=== PATIENT | female | born 1945 | race Caucasian/White ===

== ENCOUNTER → 2023-10-15 11:29 | Outpatient (REF) | payer MEDICARE, OTHER, SELFPAY | LOC: RAD 11:29 | PROVIDERS: ATTENDING PHYSICIAN Internal Medicine Hematology & Oncology; FAMILY PHYSICIAN Family Medicine | DX: C40 Malignant neoplasm of bone and articular cartilage of limbs (principal); C34.92 Malignant neoplasm of unspecified part of left bronchus or lung | CPT/HCPCS: 71260; 74177; Q9967 ==

== ENCOUNTER → 2024-01-29 15:57 | Outpatient (REF) | payer MEDICARE, OTHER, SELFPAY ==
[2024-01-29 13:55] LABS: % Basophils 0.4 % (0-2); % Lymphocytes 27.9 % (20.5-51.1); % Monocytes 14.1 % (1.7-9.3); % Neutrophils 56.6 % (42.2-75.2); Absolute Eosinophils 0.1 10^3/uL (0-0.7); Absolute Lymphocytes 1.4 10^3/uL (1.2-3.4); Absolute Monocytes 0.7 10^3/uL (0.1-0.6); Absolute Neutrophils 2.8 10^3/uL (1.4-6.5); Hematocrit 40.3 % (37.0-47.0); Hemoglobin 13.6 g/dL (12.0-16.0); Mean Corp Hgb Conc. 33.7 g/dL (33.0-37.0); Mean Corpuscular Hgb 37.2 pg (27.0-31.0); Mean Corpuscular Volume 110.1 fL (81.0-99.0); Mean Platelet Volume 9.8 fL (7.4-10.4); Platelet Count 151 10^3/uL (130-400); Red Blood Cell Count 3.66 10^6/uL (4.20-5.40); Red Cell Dist. Width 12.3 % (11.5-14.5)
[2024-01-29 14:26] LABS: ALT (SGPT) 22 U/L (0-35); AST (SGOT) 41 U/L (14-36); Albumin 4.7 g/dl (3.5-5.0); Alkaline Phosphatase 117 U/L (38-126); Blood Urea Nitrogen 19 mg/dl (7-17); Calcium 9.9 mg/dl (8.4-10.2); Carbon Dioxide 27 mmol/L (22-30); Chloride 100 mmol/L (98-107); Glucose 118 mg/dl (70-99); Potassium 3.9 mmol/L (3.5-5.1); Sodium 140 mmol/L (135-145); Total Bilirubin 0.8 mg/dl (0.2-1.3); Total Protein 7.6 g/dl (6.3-8.2); eGFR > 60.00
[2024-01-30 15:36] LABS: Folate 16.2 ng/ml (2.76-20); Vitamin B12 225 pg/ml (239-931)
== END ==
LOC: OIDL 15:57
PROVIDERS: ATTENDING PHYSICIAN Internal Medicine Hematology & Oncology
DX: C40 Malignant neoplasm of bone and articular cartilage of limbs (principal); C34.92 Malignant neoplasm of unspecified part of left bronchus or lung; D51.0 Vitamin B12 deficiency anemia due to intrinsic factor deficiency
CPT/HCPCS: 80053; 82607; 82746; 85025

== ENCOUNTER → 2024-04-03 13:43 | Outpatient (REF) | payer MEDICARE, OTHER, SELFPAY | LOC: RAD 13:43 | PROVIDERS: ATTENDING PHYSICIAN Internal Medicine Hematology & Oncology; FAMILY PHYSICIAN Family Medicine | DX: C40 Malignant neoplasm of bone and articular cartilage of limbs (principal); C34.92 Malignant neoplasm of unspecified part of left bronchus or lung | CPT/HCPCS: 71260; 74177; Q9967 ==

== ENCOUNTER → 2024-06-17 14:31 | Outpatient (REF) | payer MEDICARE, OTHER, SELFPAY ==
[2024-06-17 14:37] LABS: % Basophils 0.5 % (0-2); % Eosinophils 2.4 % (0-6); % Immature Granulocytes 0.3 % (0-0.5); % Lymphocytes 21.7 % (20.5-51.1); % Monocytes 11.3 % (1.7-9.3); % Neutrophils 63.8 % (42.2-75.2); Absolute Eosinophils 0.2 10^3/uL (0-0.7); Absolute Lymphocytes 1.4 10^3/uL (1.2-3.4); Absolute Monocytes 0.7 10^3/uL (0.1-0.6); Hematocrit 38.7 % (37.0-47.0); Mean Corp Hgb Conc. 33.6 g/dL (33.0-37.0); Mean Corpuscular Hgb 36.9 pg (27.0-31.0); Mean Corpuscular Volume 109.9 fL (81.0-99.0); Mean Platelet Volume 9.6 fL (7.4-10.4); Platelet Count 160 10^3/uL (130-400); Red Blood Cell Count 3.52 10^6/uL (4.20-5.40); Red Cell Dist. Width 12.3 % (11.5-14.5); White Blood Cell Count 6.3 10^3/uL (4.8-10.8)
[2024-06-17 15:45] LABS: ALT (SGPT) 36 U/L (0-35); AST (SGOT) 57 U/L (14-36); Albumin 4.4 g/dl (3.5-5.0); Alkaline Phosphatase 133 U/L (38-126); Blood Urea Nitrogen 15 mg/dl (7-17); Calcium 9.5 mg/dl (8.4-10.2); Carbon Dioxide 24 mmol/L (22-30); Chloride 102 mmol/L (98-107); Glucose 99 mg/dl (70-99); Potassium 4.7 mmol/L (3.5-5.1); Sodium 136 mmol/L (135-145); Total Bilirubin 0.6 mg/dl (0.2-1.3); Total Protein 7.5 g/dl (6.3-8.2); eGFR > 60.00
[2024-06-17 16:51] LABS: Folate 6.4 ng/ml (2.76-20); Vitamin B12 237 pg/ml (239-931)
== END ==
LOC: OIDL 14:31
PROVIDERS: ATTENDING PHYSICIAN Internal Medicine Hematology & Oncology
DX: C40 Malignant neoplasm of bone and articular cartilage of limbs (principal); C34.92 Malignant neoplasm of unspecified part of left bronchus or lung; D51.0 Vitamin B12 deficiency anemia due to intrinsic factor deficiency
CPT/HCPCS: 80053; 82607; 82746; 85025

== ENCOUNTER → 2024-12-21 08:55 | Outpatient (REF) | payer MEDICARE, OTHER, SELFPAY ==
[2024-12-21 09:09] LABS: Glucose 103 mg/dl (70-99)
== END ==
LOC: PET 08:55
PROVIDERS: ATTENDING PHYSICIAN Internal Medicine Hematology & Oncology
DX: C40 Malignant neoplasm of bone and articular cartilage of limbs (principal); C34.92 Malignant neoplasm of unspecified part of left bronchus or lung; D51.0 Vitamin B12 deficiency anemia due to intrinsic factor deficiency
CPT/HCPCS: 36415; 82947

== ENCOUNTER → 2024-12-31 13:02 | Outpatient (REF) | payer MEDICARE, OTHER, SELFPAY | LOC: RAD 13:02 | PROVIDERS: ATTENDING PHYSICIAN Internal Medicine Hematology & Oncology; FAMILY PHYSICIAN Family Medicine | DX: C40 Malignant neoplasm of bone and articular cartilage of limbs (principal); C34.92 Malignant neoplasm of unspecified part of left bronchus or lung; D51.0 Vitamin B12 deficiency anemia due to intrinsic factor deficiency | CPT/HCPCS: 71275; Q9967 ==

== ENCOUNTER → 2025-01-19 15:39 | Outpatient (REF) | payer MEDICARE, OTHER, SELFPAY | LOC: HWRCS 15:39 | PROVIDERS: ATTENDING PHYSICIAN Internal Medicine Cardiovascular Disease; FAMILY PHYSICIAN Family Medicine | DX: R06.00 Dyspnea, unspecified (principal) | CPT/HCPCS: 93306 ==